=== PATIENT | female | born 1975 | race Caucasian/White ===

== ENCOUNTER 2018-10-08 03:42 | Observation (INO) | payer OTHER, MEDICAID, SELFPAY ==
[2018-10-08] VITALS (37 sets, daily range): BP systolic 81–118; BP diastolic 42–77; PULSE 88–122; RESP 13–25; TEMP 36.5–37.4; O2SAT 96–100; BMI 29.2
[2018-10-08] MEDS: ONDANSETRON 4 MG/2 ML INJ IV ×2 (03:40→06:13)
--- NOTE | 2018-10-08 03:48 | DI.US.S_ITS ---
PROCEDURE: US PELVIC COMPLETE INDICATIONS: EXTREME VAGINAL BLEEDING TECHNIQUE: Real-time scanning was performed of the pelvic organs, with image documentation. Additional endovaginal scanning was necessary due to incomplete visualization of the adnexal and endometrial structures by transabdominal scanning. COMPARISON: None. FINDINGS: Transabdominal scanning: Limited scanning through the kidneys shows no hydronephrosis. No pathologic free abdominal or pelvic fluid. Small amount of free fluid within physiological limits. Endovaginal scanning: Uterus: Uterus is normal in size at 5.6 x 3.8 x 3 point cm. The endometrium measures 7 mm in combined thickness. Mid posterior subserosal fibroid measuring 20 mm. Right mid posterior subserosal fibroid measuring 17 mm. Ovaries: Partially collapsed right ovarian cyst measuring 25 mm. Subcentimeter cystic structures within the left ovary. IMPRESSION: 1. Uterine fibroids. Patient may be a candidate for uterine fibroid embolization. Interventional radiology consultation recommended. 2. Small amount of physiologic free fluid within the pelvis. Dictated by: Alexandria Barbosa M.D. on 10/08/2018 at 7:39 Approved by: Alexandria Barbosa M.D. on 10/08/2018 at 7:41
[2018-10-08] MEDS: SODIUM CHLORIDE 0.9% 1,000 ML 1000 ML IV ×2 (03:53→04:53)
[2018-10-08 03:58] LABS: INR 1.1 (0.9-1.3); Prothrombin Time 12.5 SECONDS (10.1-12.7)
[2018-10-08 04:00] LABS: PTT Partial Thromboplastin Tim 28 SECONDS (26.4-36.2)
[2018-10-08 04:02] LABS: BUN Creatinine Ratio 12.2 (6-22); Blood Urea Nitrogen 11 mg/dL (7-17); Calcium 9.2 mg/dL (8.4-10.2); Carbon Dioxide 19 mmol/L (22-32); Chloride 96 mmol/L (98-107); Estimated Glomerular Filt Rate > 60.0 mL/min (>60); Glucose 437 mg/dL (70-100); HEMOLYSIS < 15 (0-50); Potassium 3.7 mmol/L (3.4-5.1); Sodium 131 mmol/L (137-145)
--- NOTE | 2018-10-08 04:04 | ED.FEMALEGU ---
HPI - Female Genitourinary General Chief complaint: Urogenital-Female Stated complaint: Vaginal Bleed Time Seen by Provider: 10/08/18 03:48 Source: patient and EMS Mode of arrival: EMS Limitations: no limitations History of Present Illness HPI Narrative: Patient is a 43-year-old female who presents with significant vaginal bleeding. She has a history of Lyme disease she had intercourse she says 1st times evening. Almost immediately after she started having lots of vaginal bleeding and clots. She states that no objects were used during intercourse honor intercourse was consensual. She states that she has always had heavy menstrual cycles. She did just finish. She says that she went through and pads in 1 hour there are lots of blood clots. EMS arrived she actually was quite hypotensive with a systolic in the 60s. It only slowly increased to the 80s. She is awake alert and pale. She says this has never happened to her before. She has no pelvic pain. Some mild abdominal lower discomfort. MD Complaint: vaginal bleeding Related Data Home Medications Medication Instructions Recorded Confirmed Hydroxychloroquine Sulfate 200 mg PO BID #0 07/09/10 (Plaquenil) LEVOTHYROXINE SODIUM (Synthroid) 75 mcg PO QDAY #0 07/09/10 Allergies Allergy/AdvReac Type Severity Reaction Status Date / Time cefaclor Allergy Unknown Verified 10/08/18 07:21 ibuprofen Allergy Unknown Verified 10/08/18 07:21 metoclopramide Allergy Unknown Verified 10/08/18 07:21 sumatriptan Allergy Unknown Verified 10/08/18 07:21 Review of Systems Review of Systems ROS Unobtainable: All systems reviewed & are unremarkable except as noted in HPI and below Constitutional Denies chills, Denies fever(s), Denies lethargy and Denies weakness Eyes Denies change in vision, Denies eye discharge, Denies irritation and Denies loss of vision ENT Ears, Nose, Mouth, and Throat: Denies change in voice, Denies neck pain and Denies sore throat Cardiovascular Denies chest pain, Reports lightheadedness, Denies dyspnea and Denies dyspnea on exertion Respiratory Denies cough, Denies dyspnea, Denies dyspnea on exertion and Denies wheezing Gastrointestinal Gastrointestinal: Reports abdominal pain, Reports nausea and Reports vomiting (Actively vomiting) Genitourinary Reports as per HPI and Reports abnormal vaginal bleeding Musculoskeletal Denies neck pain Integumentary/Breasts Denies pruritus, Denies erythema, Denies rash and Denies wounds Neurologic Denies loss of vision and Denies weakness Allergic/Immunologic Denies wheezing [facility] Medical History Lyme disease (Acute) Social History Smoking Status: Never smoker Social History Smoking Status: Never smoker Exam Initial Vital Signs Initial Vital Signs: Vital Signs Pulse Rate 120 H 10/08/18 03:45 Respiratory Rate 20 10/08/18 03:45 Blood Pressure 85/57 L 10/08/18 03:45 Pulse Oximetry 100 10/08/18 03:45 GENERAL: Pale alert female [id number] distress actively vomiting HEENT: Head atraumatic,EOMI, pupils reactive, face symmetric, [moist] mucous membranes CARDIOVASCULAR: Regular rate and rhythm without murmurs, rubs or gallops. RESPIRATORY: Breath sounds equal bilaterally, no wheezes rales or rhonchi. ABDOMEN: Soft, nontender. Normoactive bowel sounds all 4 quadrants. No guarding or rebound. PELVIC: External genitalia is normal, no lacerations no sign of trauma blood clots noted some mild vaginal bleeding., no vaginal discharge, no odor, cervical os is open, no adnexal tenderness : No CVA tenderness EXTREMITIES: Normal range of motion, no clubbing or edema. Neurovascularly intact NEUROLOGICAL: Alert and oriented x4.Normal gait and speech. Cranial nerves II through XII grossly intact. SKIN: Warm, dry, no laceration, no petechiae, no rashes or lesions. Course Orders Ordered: ED Orders 10/08/18 03:40 Basic Metabolic Panel Stat Complete Blood Count AUTO DIFF Stat Partial Thromboplastin Time Stat Test Serum,Qual Stat Prothrombin Time INR Stat 10/08/18 03:48 US pelvic complete Stat 10/08/18 04:11 Packed Cells Stat Type and Screen Stat 10/08/18 06:06 CT abdomen pelvis w con Stat 10/08/18 06:45 Hemoglobin and Hematocrit Stat Discontinued Medications Sodium Chloride (Normal Saline 0.9%) 1,000 mls @ 1,000 mls/hr IV BOLUS ONE Stop: 10/08/18 04:47 Last Infusion: 10/08/18 04:53 Dose: 0 mls/hr Admin: 10/08/18 03:53 Dose: 1,000 mls/hr Sodium Chloride (Normal Saline 0.9%) 1,000 mls @ 1,000 mls/hr IV BOLUS ONE Stop: 10/08/18 05:03 Last Infusion: 10/08/18 06:30 Dose: 0 mls/hr Admin: 10/08/18 04:53 Dose: 1,000 mls/hr Medroxyprogesterone Acetate (Medroxyprogesterone) 20 mg PO NOW ONE Stop: 10/08/18 04:47 Last Admin: 10/08/18 05:12 Dose: 20 mg Ondansetron HCl (Zofran) 4 mg IV NOW ONE Stop: 10/08/18 06:05 Last Admin: 10/08/18 06:13 Dose: 4 mg Ondansetron HCl (Zofran) 4 mg IV NOW ONE Stop: 10/08/18 03:41 Last Admin: 10/08/18 03:40 Dose: 4 mg Pantoprazole Sodium (Protonix) 40 mg IV NOW ONE Stop: 10/08/18 06:08 Last Admin: 10/08/18 06:15 Dose: 40 mg Vital Signs - 8 hr 10/08/18 03:45 10/08/18 03:48 10/08/18 03:50 Pulse Rate 120 H 116 H 105 H Respiratory Rate 20 18 20 Blood Pressure 90/58 L Blood Pressure [Left Arm] 85/57 L 83/60 L Pulse Oximetry 100 99 100 10/08/18 03:55 10/08/18 04:10 10/08/18 04:15 Pulse Rate 100 H 95 H 95 H Respiratory Rate 19 17 21 Blood Pressure Blood Pressure [Left Arm] 97/66 92/43 L 99/54 L Pulse Oximetry 100 100 100 10/08/18 04:31 Pulse Rate 104 H Respiratory Rate 16 Blood Pressure Blood Pressure [Left Arm] 81/52 L Pulse Oximetry 100 MDM - Female Genitourinary Lab Data Attestation: I reviewed the patient's lab results. Result diagrams: 10/08/18 06:45 10/08/18 03:40 Lab Results 10/08/18 10/08/18 10/08/18 Range/Units 03:40 03:40 03:40 WBC 26.4 H (4.5-11.0) X10^3/uL RBC 3.58 L (4.0-5.2) X10^6/uL Hgb 10.1 L (12.0-16.0) g/dL Hct 30.9 L (36-46) % MCV 86.3 (80-100) fL MCH 28.2 (26-34) PG MCHC 32.6 (30-36) % RDW 13.9 (11.6-14.8) % Plt Count 463 H (150-400) X10^3/uL Neut % (Auto) Not Reportable Lymph % (Auto) Not Reportable [place] % (Auto) Not Reportable Eos % (Auto) Not Reportable Baso % (Auto) Not Reportable Lymph # (Auto) Not Reportable [place] # (Auto) Not Reportable Baso # (Auto) Not Reportable Total Counted 100 Seg Neutrophils % 90.0 H (38-70) % Lymphocytes % (Manual) 5.0 L (25-45) % Monocytes % (Manual) 5.0 (2-11) % Neutrophils # (Manual) 51572 H (7602-9714) /uL RBC Morphology Normal morphology PT 12.5 (10.1-12.7) SECONDS INR 1.1 (0.9-1.3) APTT 28 (26.4-36.2) SECONDS Sodium 131 L (137-145) mmol/L Potassium 3.7 (3.4-5.1) mmol/L Chloride 96 L (98-107) mmol/L Carbon Dioxide 19 L (22-32) mmol/L BUN 11 (7-17) mg/dL Creatinine 0.90 (0.52-1.04) mg/dL Estimated GFR > 60.0 (>60) mL/min BUN/Creatinine Ratio 12.2 (6-22) Glucose 437 H (70-100) mg/dL Calcium 9.2 (8.4-10.2) mg/dL Serum , Qual (Negative) Blood Type Antibody Screen Crossmatch 10/08/18 10/08/18 10/08/18 Range/Units 03:40 04:11 06:45 WBC (4.5-11.0) X10^3/uL RBC (4.0-5.2) X10^6/uL Hgb 6.7 L* (12.0-16.0) g/dL Hct 19.9 L* (36-46) % MCV (80-100) fL MCH (26-34) PG MCHC (30-36) % RDW (11.6-14.8) % Plt Count (150-400) X10^3/uL Neut % (Auto) Lymph % (Auto) [place] % (Auto) Eos % (Auto) Baso % (Auto) Lymph # (Auto) [place] # (Auto) Baso # (Auto) Total Counted Seg Neutrophils % (38-70) % Lymphocytes % (Manual) (25-45) % Monocytes % (Manual) (2-11) % Neutrophils # (Manual) (2402-4347) /uL RBC Morphology PT (10.1-12.7) SECONDS INR (0.9-1.3) APTT (26.4-36.2) SECONDS Sodium (137-145) mmol/L Potassium (3.4-5.1) mmol/L Chloride (98-107) mmol/L Carbon Dioxide (22-32) mmol/L BUN (7-17) mg/dL Creatinine (0.52-1.04) mg/dL Estimated GFR (>60) mL/min BUN/Creatinine Ratio (6-22) Glucose (70-100) mg/dL Calcium (8.4-10.2) mg/dL Serum , Qual Negative (Negative) Blood Type O Positive Antibody Screen Negative Crossmatch See Detail Point of Care Testing Glucose POC 277 Imaging Data Pelvic ultrasound: 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 2.5 x 1.2 x 1.3 mild complex right ovarian cyst. Blood flow evident in bilateral ovaries. No adnexal masses. Trace free fluid. Uterus 5.6 cm. [facility] Narrative Medical decision making narrative: Patient initially quite hypotensive and tachycardic. She is fluid responsive. Cp 2 L of IV fluid blood pressure remains low but she is awake alert oriented heart rate is under 100. She consistently has some nausea and vomiting episodes despite anti nausea medication. She is noted to have quite significant leukocytosis and elevated glucose. Possibly due to stress reaction. Hemoglobin hematocrit are slightly low at 10.1 and 30.9%. Will be repeating H&H Due to persistent vomiting and significantly elevated leukocytosis will get abdominal CT. I have Repeat H&H significantly lower hemoglobin 6.7 hematocrit 19.9. 2 units of blood ordered. Patient remains slightly tachycardic 100-110 blood pressure remains in the 90s. Decision for CT. Dr. Drew-called and updated on patient's symptoms and test results. Agrees with admission. CT still pending. Patient signed out to Dr. Almendarez will check on CT. Critical Care Time Critical Care Time: Yes Total Critical Care Time: 45 Attestation: The high probability of a clinically significant, sudden or life threatening deterioration of the cardiovascular system(s) required my full and direct attention, intervention and personal management. The aggregate critical care time was 45 minutes. This time is in addition to time spent performing reported procedures but includes the following: x Data Review and interpretation x Patient assessment and monitoring of vital signs x Documentation x Medication orders and management Discharge Plan Departure Patient Disposition: Admitted As Inpatient Clinical Impression: Hemorrhagic shock, Vaginal bleeding
[2018-10-08 04:08] LABS: Hematocrit 30.9 % (36-46); Hemoglobin 10.1 g/dL (12.0-16.0); Mean Corpuscular HGB Conc 32.6 % (30-36); Mean Corpuscular Hemoglobin 28.2 PG (26-34); Mean Corpuscular Volume 86.3 fL (80-100); Platelet Count 463 X10^3/uL (150-400); Red Blood Cell Count 3.58 X10^6/uL (4.0-5.2); Red Cell Distribution Width 13.9 % (11.6-14.8); White Blood Cell Count 26.4 X10^3/uL (4.5-11.0)
[2018-10-08 04:10] LABS: Add Manual Diff / Slide Review YES
[2018-10-08 04:23] LABS: Neutrophils Absolute Manual 23760 /uL (3000-5900); RBC Morphology Normal Morphology; Total Cells Counted 100
[2018-10-08] MEDS: MEDROXYPROGESTERONE ACETATE 10 MG TABLET 20 MG PO ×2 (05:12→07:53)
--- NOTE | 2018-10-08 06:06 | DI.CT.S_ITS ---
PROCEDURE: CT ABDOMEN PELVIS W CON INDICATIONS: vaginal bleeding, hypotenstion, lower abdominal pain TECHNIQUE: After the administration of intravenous contrast, 5 mm thick sections acquired from the diaphragm to the symphysis. 5 mm coronal and sagittal reformats were acquired. For radiation dose reduction, the following was used: automated exposure control, adjustment of mA and/or kV according to patient size. COMPARISON: [facility], CT, ABDOMEN/PELVIS WITH CONTRAST, 11/23/2007, 10:50. FINDINGS: Image quality: Excellent. ABDOMEN: Lung bases: Lung bases are clear. Heart size is normal. Solid organs: Liver is normal in size and enhancement. Gallbladder is within normal limits. Biliary system is non dilated. Pancreas enhances normally. Spleen is normal in size and enhancement. No adrenal nodules. Kidneys demonstrate normal size and enhancement, without hydronephrosis. Peritoneum and bowel: Bowel loops demonstrate normal wall thickness and caliber. No free air. Small amount of physiologic free fluid within the pelvis. Normal appendix. Nodes and vessels: No retroperitoneal or mesenteric adenopathy by size criteria. Aorta and inferior vena cava are normal in size. Miscellaneous: A 26 mm diameter fat containing umbilical hernia is present, which has increased in size. PELVIS: Genitourinary: Bladder wall thickness is normal. A 19 mm exophytic enhancing focus protruding superiorly from the posterior superior uterus. A 22 mm diameter exophytic enhancing focus protrudes posteriorly from the left posterior uterus. Miscellaneous: No inguinal hernias or adenopathy. Bones: No suspicious bony lesions. No vertebral body compression fractures. IMPRESSION: 1. Uterine fibroids. Given the patient's vaginal bleeding, patient may be a candidate for uterine fibroid embolization. Interventional radiology consultation with Dr. Barbosa could be performed, if clinically indicated. 2. Normal appendix. 3. Small amount of physiologic free fluid within the pelvis. 4. Increased fat-containing umbilical hernia. 5. Concordant with preliminary interpretation. Dictated by: Alexandria Barbosa M.D. on 10/08/2018 at 7:34 Approved by: Alexandria Barbosa M.D. on 10/08/2018 at 7:38
[2018-10-08] MEDS: PANTOPRAZOLE 40 MG VIAL IV (06:15)
[2018-10-08 06:18] LABS: Pregnancy Test Serum,Qual Negative (Negative)
[2018-10-08 07:00] LABS: Hemoglobin 6.7 g/dL (12.0-16.0)
[2018-10-08 07:01] LABS: Hematocrit 19.9 % (36-46)
--- NOTE | 2018-10-08 09:00 | PM.GYNHP.1 ---
History of Present Illness Reason for admission: vaginal bleeding Narrative: Nupur Coon is a 43 year old female admitted for blood transfusion after her significant vaginal bleeding after her 1st encounter of intercourse [facility] Medical History (Updated 10/08/18 @ 11:51 by Sandy Drew MD) Asthma (Chronic) Hypothyroid (Chronic) Lyme disease (Chronic) Musculoskeletal pain (Chronic) Vision loss of left eye (Chronic) Migraine (Inactive) Surgical History (Updated 10/08/18 @ 09:26 by Sandy Drew MD) History of laparoscopy (Inactive) Social History household members: family Smoking Status: Never smoker Social History household members: family Smoking Status: Never smoker Meds Home Medications Medication Instructions Recorded Confirmed Type Hydroxychloroquine Sulfate 200 mg PO BID #0 07/09/10 10/08/18 History (Plaquenil) LEVOTHYROXINE SODIUM (Synthroid) 75 mcg PO QDAY #0 07/09/10 10/08/18 History albuterol sulfate INHALATION PRN PRN 10/08/18 History Allergies Allergy/AdvReac Type Severity Reaction Status Date / Time cefaclor Allergy Unknown Verified 10/08/18 07:21 ibuprofen Allergy Unknown Verified 10/08/18 07:21 metoclopramide Allergy Unknown Verified 10/08/18 07:21 sumatriptan Allergy Unknown Verified 10/08/18 07:21 Review of Systems Review of Systems Patient has occasional headaches she thinks are from either her Lyme disease which she contracted in 2000 or from head injury she received as a child after which she had left-sided vision loss. Patient was otherwise healthy until she attempted to have intercourse for the 1st time and had significant bleeding afterwards. Patient states she soaks 7 pads in an hour and a half. She became lightheaded and dizzy. She was brought to the hospital by ambulance. Patient denies any depression or anxiety. She denies any chest pains or shortness of breath currently but does have a history of asthma for which she uses an albuterol nebulizer. She denies any breast changes. She is having some mild abdominal pain. She has a history of intermittent constipation. Her periods are mostly regular sometimes lasting 4-5 days sometimes 7 days but she only changes her pad 4-5 times per day. Patient does have a history of hypothyroidism but has not taking her medication for several months. She also has a history of Lyme disease which she was on Plaquenil but has not taken for several months. She says she takes Neurontin but also is almost out of the medication. She takes Benadryl for skin itching she believes are from her Lyme disease. All systems reviewed & are unremarkable except as noted in HPI and below Exam Vital Signs (past 8 hours): - 10/08/18 03:45 10/08/18 03:48 10/08/18 03:50 Temperature Pulse Rate 120 H 116 H 105 H Respiratory Rate 20 18 20 Blood Pressure 90/58 L Blood Pressure [Left Arm] 85/57 L 83/60 L Pulse Oximetry 100 99 100 10/08/18 03:55 10/08/18 04:00 10/08/18 04:10 Temperature Pulse Rate 100 H 101 H 95 H Respiratory Rate 19 22 17 Blood Pressure Blood Pressure [Left Arm] 97/66 97/66 92/43 L Pulse Oximetry 100 100 100 10/08/18 04:15 10/08/18 04:31 10/08/18 04:35 Temperature Pulse Rate 95 H 104 H 101 H Respiratory Rate 21 16 17 Blood Pressure Blood Pressure [Left Arm] 99/54 L 81/52 L 102/64 Pulse Oximetry 100 100 100 10/08/18 04:45 10/08/18 04:55 10/08/18 05:05 Temperature Pulse Rate 109 H 95 H 90 Respiratory Rate 18 20 22 Blood Pressure Blood Pressure [Left Arm] 85/42 L 92/54 L 97/55 L Pulse Oximetry 100 100 100 10/08/18 05:15 10/08/18 05:25 10/08/18 05:35 Temperature Pulse Rate 95 H 97 H 88 Respiratory Rate 20 20 21 Blood Pressure Blood Pressure [Left Arm] 93/59 L 94/61 96/59 L Pulse Oximetry 100 97 98 10/08/18 05:45 10/08/18 05:55 10/08/18 06:05 Temperature Pulse Rate 90 105 H 99 H Respiratory Rate 21 15 18 Blood Pressure Blood Pressure [Left Arm] 98/67 87/58 L 90/61 Pulse Oximetry 100 100 100 10/08/18 06:15 10/08/18 06:25 10/08/18 07:00 Temperature Pulse Rate 101 H 92 H 100 H Respiratory Rate 19 23 23 Blood Pressure Blood Pressure [Left Arm] 105/61 103/54 L 106/58 L Pulse Oximetry 99 100 100 10/08/18 07:05 10/08/18 07:30 10/08/18 07:40 Temperature 99.4 F Pulse Rate 96 H 103 H 102 H Respiratory Rate 21 24 19 Blood Pressure Blood Pressure [Left Arm] 99/75 108/77 Pulse Oximetry 100 100 100 10/08/18 07:44 10/08/18 07:57 10/08/18 08:59 Temperature 99.4 F 97.7 F 98.5 F Pulse Rate 102 H 110 H 102 H Respiratory Rate 19 18 16 Blood Pressure 118/46 L 112/44 L 101/73 Blood Pressure [Left Arm] Pulse Oximetry Oxygen Delivery Method Room Air Narrative Exam Narrative: HEENT exam poor dentition. Lungs are clear to auscultation and percussion. Abdomen is soft, with minimal tenderness. She has minimal vaginal bleeding currently. Extremities without edema nontender. Objective Imaging CT scan - pelvis: Radiologist's impression: Two small subserosal fibroids no other abnormalities US - abdomen: Radiologist's impression: Two small subserosal fibroids within endometrium otherwise normal Labs Result Diagrams: 10/08/18 06:45 10/08/18 03:40 Labs: Laboratory Results - last 24 hr 10/08/18 10/08/18 10/08/18 03:40 03:40 03:40 WBC 26.4 H RBC 3.58 L Hgb 10.1 L Hct 30.9 L MCV 86.3 MCH 28.2 MCHC 32.6 RDW 13.9 Plt Count 463 H Neut % (Auto) Not Reportable Lymph % (Auto) Not Reportable [place] % (Auto) Not Reportable Eos % (Auto) Not Reportable Baso % (Auto) Not Reportable Lymph # (Auto) Not Reportable [place] # (Auto) Not Reportable Baso # (Auto) Not Reportable Total Counted 100 Seg Neutrophils % 90.0 H Lymphocytes % (Manual) 5.0 L Monocytes % (Manual) 5.0 Neutrophils # (Manual) 62634 H RBC Morphology Normal morphology PT 12.5 INR 1.1 APTT 28 Sodium 131 L Potassium 3.7 Chloride 96 L Carbon Dioxide 19 L BUN 11 Creatinine 0.90 Estimated GFR > 60.0 BUN/Creatinine Ratio 12.2 Glucose 437 H Calcium 9.2 Serum , Qual Blood Type Antibody Screen Crossmatch 10/08/18 10/08/18 10/08/18 03:40 04:11 06:45 WBC RBC Hgb 6.7 L* Hct 19.9 L* MCV MCH MCHC RDW Plt Count Neut % (Auto) Lymph % (Auto) [place] % (Auto) Eos % (Auto) Baso % (Auto) Lymph # (Auto) [place] # (Auto) Baso # (Auto) Total Counted Seg Neutrophils % Lymphocytes % (Manual) Monocytes % (Manual) Neutrophils # (Manual) RBC Morphology PT INR APTT Sodium Potassium Chloride Carbon Dioxide BUN Creatinine Estimated GFR BUN/Creatinine Ratio Glucose Calcium Serum , Qual Negative Blood Type O Positive Antibody Screen Negative Crossmatch See Detail Assessment & Plan (1) Vaginal bleeding: Current visit: Yes Status: Acute (2) Hemorrhagic shock: Current visit: Yes Status: Acute Assessment & Plan narrative: Patient with significant bleeding after 1st attempt at intercourse. She currently has minimal bleeding. She had a significant drop in her hematocrit during her emergency room evaluation and was admitted for blood transfusion. Although there are fibroids seen on ultrasound they are subserosal so unlikely to be the cause of her bleeding. Her endometrial lining is thin. The patient likely has chronic anemia that was exacerbated by the blood loss from her initial intercourse. Patient has received 2 units of packed red blood cells. If she remains stable she will be discharged home. Time Spent With Patient Time with patient: 15-24 minutes
--- NOTE | 2018-10-08 10:38 | PC.NURSE ---
Addendum entered by Debbie Santiago R.N. 10/08/18 13:02: pt ambulated in ICU halls. HH results back and Dr. Drew has seen results. pt without dizziness. BP stable. tachycardia HR 100-130's; Dr. Drew aware and pt states this is her normal since lyme disease diagnosis. Original Note: admission done. pt alert and oriented. pleasant. pt states h/o tachycardia, generalized discomfort due to lyme disease. most of pt's teeth worn 1/[address] way. pt denies teeth pain.
[2018-10-08 12:28] LABS: Add Manual Diff / Slide Review NO; Basophils Absolute Auto 0 /uL (0-100); Basophils Percent Auto 0.1 % (0-2); Eosinophils Absolute Auto 0 /uL (0-450); Eosinophils Percent Auto 0.1 % (2-4); Hemoglobin 11.9 g/dL (12.0-16.0); Lymphocytes Absolute Auto 2800 /uL (1100-4500); Lymphocytes Percent Auto 13.7 % (25-40); Mean Corpuscular Hemoglobin 28.4 PG (26-34); Mean Corpuscular Volume 83.7 fL (80-100); Monocytes Absolute Auto 1000 /uL (0-900); Neutrophils Absolute Auto 16700 /uL (1500-7000); Neutrophils Percent Auto 81.1 % (50-75); Platelet Count 292 X10^3/uL (150-400); Red Blood Cell Count 4.18 X10^6/uL (4.0-5.2); Red Cell Distribution Width 13.9 % (11.6-14.8); White Blood Cell Count 20.6 X10^3/uL (4.5-11.0)
--- NOTE | 2018-10-08 13:18 | PM.DS.1 ---
History of Present Illness Date Patient Seen: 10/08/18 Time Patient Seen: 13:18 Chief complaint: Vaginal Bleed Narrative: Patient had excessive bleeding after intercourse and was admitted for blood transfusion for hypotension and anemia Discharge Providers Date of admission: 10/08/18 07:40 Discharge Date: 10/08/18 Discharge provider: Sandy Drew MD Summary Discharge Diagnosis: Menorrhagia from vaginal laceration likely chronic anemia Hospital Course: Patient will arrived at the hospital emergency room from emergency transport due to significant vaginal bleeding after intercourse. Patient received 2 units of packed red blood cells and her post transfusion hematocrit had increased to 35. Patient was able to ambulate without difficulty. She was urinating without difficulty. She had a bowel movement in the hospital. She had minimal vaginal bleeding. Status at Discharge Cognitive/behavioral status at discharge: oriented Functional status at discharge: independent ambulation Overall status at discharge: patient is progressing back to baseline Time Spent with Patient Less than 30 minutes Exam Vital Signs (past 8 hours): - 10/08/18 05:25 10/08/18 05:35 10/08/18 05:45 Temperature Pulse Rate 97 H 88 90 Respiratory Rate 20 21 21 Blood Pressure Blood Pressure [Left Arm] 94/61 96/59 L 98/67 Pulse Oximetry 97 98 100 10/08/18 05:55 10/08/18 06:05 10/08/18 06:15 Temperature Pulse Rate 105 H 99 H 101 H Respiratory Rate 15 18 19 Blood Pressure Blood Pressure [Left Arm] 87/58 L 90/61 105/61 Pulse Oximetry 100 100 99 10/08/18 06:25 10/08/18 07:00 10/08/18 07:05 Temperature Pulse Rate 92 H 100 H 96 H Respiratory Rate 23 23 21 Blood Pressure Blood Pressure [Left Arm] 103/54 L 106/58 L 99/75 Pulse Oximetry 100 100 100 10/08/18 07:30 10/08/18 07:40 10/08/18 07:44 Temperature 99.4 F 99.4 F Pulse Rate 103 H 102 H 102 H Respiratory Rate 24 19 19 Blood Pressure 118/46 L Blood Pressure [Left Arm] 108/77 Pulse Oximetry 100 100 10/08/18 07:57 10/08/18 08:03 10/08/18 08:30 Temperature 97.7 F 98.5 F 98.6 F Pulse Rate 110 H 102 H 112 H Respiratory Rate 18 16 19 Blood Pressure 112/44 L 101/73 108/43 L Blood Pressure [Left Arm] Pulse Oximetry 100 10/08/18 08:59 10/08/18 09:10 10/08/18 09:15 Temperature 98.5 F 99.1 F Pulse Rate 102 H 100 H 105 H Respiratory Rate 16 19 16 Blood Pressure 101/73 101/73 108/57 L Blood Pressure [Left Arm] Pulse Oximetry 100 10/08/18 10:00 10/08/18 10:09 10/08/18 11:00 Temperature 99.1 F Pulse Rate 101 H 100 H Respiratory Rate 18 16 17 Blood Pressure 88/64 L 111/64 94/50 L Blood Pressure [Left Arm] Pulse Oximetry 99 100 100 10/08/18 12:00 10/08/18 13:00 Temperature Pulse Rate 111 H 122 H Respiratory Rate 20 Blood Pressure 103/57 L Blood Pressure [Left Arm] Pulse Oximetry 100 Oxygen Delivery Method Room Air Oxygen Flow Rate 0 Narrative Exam Narrative: Abdomen is soft nontender. Extremities without edema and nontender. Minimal vaginal bleeding. Objective Labs Result Diagrams: 10/08/18 12:13 10/08/18 03:40 Labs: Laboratory Results - last 24 hr 10/08/18 10/08/18 10/08/18 03:40 03:40 03:40 WBC 26.4 H RBC 3.58 L Hgb 10.1 L Hct 30.9 L MCV 86.3 MCH 28.2 MCHC 32.6 RDW 13.9 Plt Count 463 H Neut % (Auto) Not Reportable Lymph % (Auto) Not Reportable Canadian % (Auto) Not Reportable Eos % (Auto) Not Reportable Baso % (Auto) Not Reportable Neut # (Auto) Lymph # (Auto) Not Reportable Canadian # (Auto) Not Reportable Eos # (Auto) Baso # (Auto) Not Reportable Total Counted 100 Seg Neutrophils % 90.0 H Lymphocytes % (Manual) 5.0 L Monocytes % (Manual) 5.0 Neutrophils # (Manual) 24131 H RBC Morphology Normal morphology PT 12.5 INR 1.1 APTT 28 Sodium 131 L Potassium 3.7 Chloride 96 L Carbon Dioxide 19 L BUN 11 Creatinine 0.90 Estimated GFR > 60.0 BUN/Creatinine Ratio 12.2 Glucose 437 H Calcium 9.2 Serum , Qual Blood Type Antibody Screen Crossmatch 10/08/18 10/08/18 10/08/18 03:40 04:11 06:45 WBC RBC Hgb 6.7 L* Hct 19.9 L* MCV MCH MCHC RDW Plt Count Neut % (Auto) Lymph % (Auto) Canadian % (Auto) Eos % (Auto) Baso % (Auto) Neut # (Auto) Lymph # (Auto) Canadian # (Auto) Eos # (Auto) Baso # (Auto) Total Counted Seg Neutrophils % Lymphocytes % (Manual) Monocytes % (Manual) Neutrophils # (Manual) RBC Morphology PT INR APTT Sodium Potassium Chloride Carbon Dioxide BUN Creatinine Estimated GFR BUN/Creatinine Ratio Glucose Calcium Serum , Qual Negative Blood Type O Positive Antibody Screen Negative Crossmatch See Detail 10/08/18 12:13 WBC 20.6 H RBC 4.18 Hgb 11.9 L Hct 35.0 L MCV 83.7 MCH 28.4 MCHC 34.0 RDW 13.9 Plt Count 292 Neut % (Auto) 81.1 H Lymph % (Auto) 13.7 L Canadian % (Auto) 5.0 Eos % (Auto) 0.1 L Baso % (Auto) 0.1 Neut # (Auto) 58293 H Lymph # (Auto) 2800 Canadian # (Auto) 1000 H Eos # (Auto) 0 Baso # (Auto) 0 Total Counted Seg Neutrophils % Lymphocytes % (Manual) Monocytes % (Manual) Neutrophils # (Manual) RBC Morphology PT INR APTT Sodium Potassium Chloride Carbon Dioxide BUN Creatinine Estimated GFR BUN/Creatinine Ratio Glucose Calcium Serum , Qual Blood Type Antibody Screen Crossmatch Discharge Plan Discharge Plan Patient Disposition: Home Discharge Med Rec/Prescriptions Prescriptions: Continued albuterol sulfate aerosol inhalation PRN PRN (Reason: Shortness Of Breath Or Wheezing) RF: 0 LEVOTHYROXINE SODIUM (Synthroid) 75 mcg 75 mcg PO QDAY Qty: 30 RF: 2 Discontinued Hydroxychloroquine Sulfate (Plaquenil) 200 mg PO BID Qty: 0 RF: 0 Follow up/Referrals: Sandy Drew MD [Physician] - 1 Week (follow up vaginal bleeding) Provider Discharge Instructions Diet: Regular Skin/Wound/Dressing Care Report to your healthcare provider any signs of infection, such as:: chills, fever and increased pain Discharge Data Attending Provider: Sandy Drew Admit Date/Time: 10/08/18 07:40 Quality VTE Deep Vein Thrombosis/Pulmonary Embolism Present on Admission: No
--- NOTE | 2018-10-08 15:11 | PC.NURSE ---
discharge instructions reviewed with pt. cole hussein dc'ana
== END 2018-10-08 15:16 | disposition home or self-care (01) ==
LOC: ED 07:35 → ICU 08:47 → AC 10-10 08:13
PROVIDERS: Emergency Medicine; Admitting Provider Specialist; Emergency Provider Emergency Medicine; Visit Provider Specialist
DX: N93.0 Postcoital and contact bleeding (principal); N93.9 Abnormal uterine and vaginal bleeding, unspecified; D62 Acute posthemorrhagic anemia; I95.9 Hypotension, unspecified; J45.909 Unspecified asthma, uncomplicated; A69.20 Lyme disease, unspecified
CPT/HCPCS: 36415; 36430; 74177; 76830; 76856; 80048; 82962; 84703; 85014; 85018; 85025; 85610; 85730; 86850; 86900; 86901; 96361; 96374; 96375; 96376; 99220; 99284; 99285; G0378; P9016; C9113; J2405; Q9967

== ENCOUNTER 2019-02-09 14:15 | Emergency (ER) | payer OTHER, MEDICAID, SELFPAY ==
[2018-10-08 10:09] VITALS: BMI 29.2
[2019-02-09 14:20] VITALS: BP 137/92; PULSE 110; RESP 15; TEMP 37.8; O2SAT 97; BMI 29.2
--- NOTE | 2019-02-09 14:30 | ED.URI ---
HPI - URI/Sore Throat <Keisha Salazar PA-C - Last Filed: 02/09/19 15:31> General Chief Complaint: Upper Respiratory Symptoms Stated Complaint: sore throat pain/fever x4 days Time Seen by Provider: 02/09/19 14:30 Source: patient Mode of arrival: Ambulatory Limitations: no limitations History of Present Illness HPI Narrative: This 43-year-old female comes to ED secondary to sore throat and fever, does not have a local PCP. She states that 6 days ago, she had laryngitis, thought it was just from yelling as she did feel better the next day. She states that for the last 3 days, she has had severe sore throat, painful to swallow but able. She has also had fever, with temperature up to 103 at home, has been taking acetaminophen as needed. She states she has also did but sinus pressure and drainage, feels a lot of phlegm draining and now has some mild cough as well. She has a history of asthma, denies chest pain or dyspnea. She denies any pain or swelling in her extremities. She states that she did take 1 dose of Bactrim yesterday because she thought her Lyme disease might be flaring up a bit. She states that she does get fevers 1 that flares up, as high as 104. She is sexually active and states she did have oral sex a day or 2 prior to the sore throat, however she has not had any urinary symptoms, vaginal discharge or other new problems. She does not have STD concerns, 1 monogamous partner. She states that her boyfriend is sick with similar symptoms except he has more cough than she does. She states that her sore throat started to feel little bit better but she got a fever again today so came in Related Data Home Medications Medication Instructions Recorded Confirmed albuterol sulfate INHALATION PRN PRN 10/08/18 10/17/18 Previous Rx's Medication Instructions Recorded norethindrone acetate 1 mg-ethinyl 1 tab PO DAILY #21 tab 10/17/18 estradiol 20 mcg tablet levothyroxine 75 mcg tablet 75 mcg PO DAILY #30 tab 01/11/19 lidocaine HCl [Lidocaine Viscous] 10 ml PO Q3-4H PRN #150 ml 02/09/19 Allergies Allergy/AdvReac Type Severity Reaction Status Date / Time cefaclor Allergy Unknown Verified 02/09/19 14:20 ibuprofen Allergy Unknown Verified 02/09/19 14:20 metoclopramide Allergy Unknown Verified 02/09/19 14:20 sumatriptan Allergy Unknown Verified 02/09/19 14:20 aspirin Allergy Verified 02/09/19 14:20 levofloxacin [From Levaquin] Allergy Verified 02/09/19 14:20 meperidine [From Demerol] Allergy Verified 02/09/19 14:20 Review of Systems <Keisha Salazar PA-C - Last Filed: 02/09/19 15:31> Review of Systems ROS Unobtainable: All systems reviewed & are unremarkable except as noted in HPI and below Patient History <Keisha Salazar PA-C - Last Filed: 02/09/19 15:31> Medical History Anemia (Chronic ~2006) Asthma (Chronic ~1989) Bartonella infection (Inactive) Zayra Newberry infection (Inactive) Fibroids (Chronic ~2001) Fractures (Resolved ~1999) GERD (gastroesophageal reflux disease) (Chronic ~2001) Headache (Chronic ~2000) History of recurrent ear infection (Chronic ~2000) Hypothyroid (Chronic ~2002) Lyme disease (Chronic ~2000) Migraine (Inactive) Migraines (Chronic ~1989) Musculoskeletal pain (Chronic) Mycoplasma infection (Inactive) Pelvic pain (Chronic ~2006) Edmundson spotted fever (Inactive) Tachycardia (Chronic ~2001) Tinnitus (Chronic ~2000) Vision loss of left eye (Chronic) Surgical History Anesthesia (Resolved) History of laparoscopy (Resolved ~2009) [place] teeth removed (Resolved ~2001) Family History (Updated 10/26/18 @ 22:50 by Celia Brooks) Father Suicide Mother Diabetes mellitus Grandfather Mesothelioma Grandmother Cancer Social History household members: family Smoking Status: Never smoker Social History household members: family Smoking Status: Never smoker alcohol intake frequency: holidays/special occasions only Substance Use Type: does not use Exam <Keisha Salazar PA-C - Last Filed: 02/09/19 15:31> Narrative Exam Narrative: GENERAL APPEARANCE: Patient sitting comfortably, in no distress. HEAD: No sinus TTP. EYES: PERRL, EOMI. EARS: Normal auditory canals, TMS intact with normal light reflexes. ORAL CAVITY: Normal oropharynx. THROAT: Clear. NECK/THYROID: Neck supple, full range of motion, no cervical lymphadenopathy. LUNGS: Clear to auscultation bilaterally, clear to percussion, no cough on exam. HEART: RRR without murmur, nl S1, S2, no S3 or S4. Initial Vital Signs Initial Vital Signs: Vital Signs Temperature 100.1 F H 02/09/19 14:20 Pulse Rate 110 H 02/09/19 14:20 Respiratory Rate 15 02/09/19 14:20 Blood Pressure 137/92 H 02/09/19 14:20 Pulse Oximetry 97 02/09/19 14:20 <Kirsten Bateman MD - Last Filed: 02/09/19 18:59> Initial Vital Signs Initial Vital Signs: Vital Signs Temperature 100.1 F H 02/09/19 14:20 Pulse Rate 110 H 02/09/19 14:20 Respiratory Rate 15 02/09/19 14:20 Blood Pressure 137/92 H 02/09/19 14:20 Pulse Oximetry 97 02/09/19 14:20 Course <Keisha Salazar PA-C - Last Filed: 02/09/19 15:31> Orders Ordered: ED Orders 02/09/19 15:18 Throat Culture Stat Discontinued Medications Acetaminophen (Tylenol) 650 mg PO NOW ONE Stop: 02/09/19 14:49 Last Admin: 02/09/19 15:17 Dose: 650 mg Documented by: BTONER Vital Signs Vital signs: Vital Signs - 8 hr 02/09/19 14:20 02/09/19 15:30 Temperature 100.1 F H 99.5 F Pulse Rate 110 H 90 Respiratory Rate 15 Blood Pressure 137/92 H 117/71 Pulse Oximetry 97 96 <Kirsten Bateman MD - Last Filed: 02/09/19 18:59> Orders Ordered: ED Orders 02/09/19 15:18 Throat Culture Stat Discontinued Medications Acetaminophen (Tylenol) 650 mg PO NOW ONE Stop: 02/09/19 14:49 Last Admin: 02/09/19 15:17 Dose: 650 mg Documented by: BTONER Vital Signs Vital signs: Vital Signs - 8 hr 02/09/19 14:20 02/09/19 15:30 Temperature 100.1 F H 99.5 F Pulse Rate 110 H 90 Respiratory Rate 15 Blood Pressure 137/92 H 117/71 Pulse Oximetry 97 96 MDM - URI/Sore Throat <Keisha Salazar PA-C - Last Filed: 02/09/19 15:31> Lab Data Attestation: I reviewed the patient's lab results. Labs: Point of Care Testing Rapid Strep A Negative <Kirsten Bateman MD - Last Filed: 02/09/19 18:59> Lab Data Labs: Point of Care Testing Rapid Strep A Negative Discharge Plan Departure Patient Disposition: Home Clinical Impression: Pharyngitis Qualifiers: Pharyngitis/tonsillitis etiology: unspecified etiology Qualified Code(s): J02.9 - Acute pharyngitis, unspecified Discharge Date/Time: 02/09/19 15:31 Instructions: DI for Pharyngitis/Tonsillopharyngitis -- Adult Activity Restrictions/Additional Instructions: We have sent a culture of your throat to the lab as a backup test for strep as well as other organisms. Your rapid strep test here was negative, and as we talked about the most common cause of sore throat with laryngitis is viral. This is more likely since your significant other is sick with upper respiratory symptoms as well. Please continue Tylenol for your fever. You may wish to try Tylenol 8 hour or arthritis strength, which you can take every 6-8 hours for longer-acting relief. I have also prescribed some viscous lidocaine for you to use as needed for pain. You may also wish to try lozenges such as Cepacol. As we talked about, you should return if you have any acutely worsening symptoms such as difficulty breathing or inability to swallow or manage your secretions, or high fever not responding to medications. Please call the [facility] at [phone] and let them know you were seen in the emergency room and need help establishing with a local primary care provider. You should be seen if you are not feeling better from your sinus and throat symptoms in the next week. Prescriptions: New lidocaine HCl [Lidocaine Viscous] 2 % solution 10 ml PO Q3-4H PRN (Reason: ST) Qty: 150 RF: 0 No Action levothyroxine 75 mcg tablet 75 mcg PO DAILY Qty: 30 RF: 1 norethindrone ac-eth estradiol 1-20 mg-mcg tablet 1 tab PO DAILY Qty: 21 RF: 10 albuterol sulfate aerosol inhalation PRN PRN (Reason: Shortness Of Breath Or Wheezing) RF: 0
[2019-02-09] MEDS: ACETAMINOPHEN 325 MG TABLET 650 MG PO (15:17)
[2019-02-09 15:30] VITALS: BP 117/71; PULSE 90; TEMP 37.5; O2SAT 96
== END 2019-02-09 15:31 | disposition home or self-care (01) ==
PROVIDERS: Emergency Provider Internal Medicine
DX: J02.9 Acute pharyngitis, unspecified (principal)
CPT/HCPCS: 87880; 99282; 99283

== ENCOUNTER 2020-11-17 18:43 | Emergency (ER) | payer OTHER, MEDICAID, SELFPAY ==
[2018-10-08 10:09] VITALS: BMI 29.2
[2020-11-17 19:00] VITALS: BP 146/74; PULSE 95; RESP 18; TEMP 36.7; O2SAT 100; BMI 27.3
[2020-11-17 19:49] LABS: Add Manual Diff / Slide Review NO; Basophils Absolute Auto 100 /uL (0-100); Basophils Percent Auto 1.1 % (0-2); Eosinophils Absolute Auto 100 /uL (0-450); Eosinophils Percent Auto 0.9 % (2-4); Hematocrit 43.4 % (36-46); Hemoglobin 14.7 g/dL (12.0-16.0); Lymphocytes Absolute Auto 2100 /uL (1100-4500); Lymphocytes Percent Auto 22.6 % (25-40); Mean Corpuscular HGB Conc 33.8 % (30-36); Mean Corpuscular Hemoglobin 29.7 PG (26-34); Mean Corpuscular Volume 87.9 fL (80-100); Monocytes Absolute Auto 700 /uL (0-900); Monocytes Percent Auto 7.8 % (3-14); Neutrophils Absolute Auto 6300 /uL (1500-7000); Neutrophils Percent Auto 67.6 % (50-75); Platelet Count 326 X10^3/uL (150-400); Red Blood Cell Count 4.94 X10^6/uL (4.0-5.2); Red Cell Distribution Width 12.7 % (11.6-14.8); White Blood Cell Count 9.3 X10^3/uL (4.5-11.0)
[2020-11-17 19:51] LABS: Alanine Aminotransferase 24 IU/L (<35); Albumin 4.8 g/dL (3.5-5.0); Albumin Globulin Ratio 1.5 (1.0-2.8); Alkaline Phosphatase 68 U/L (38-126); Aspartate Aminotransferase 24 IU/L (14-36); BUN Creatinine Ratio 18.8 (6-22); Bilirubin Total 0.4 mg/dL (0.2-1.3); Blood Urea Nitrogen 13 mg/dL (7-17); Calcium 10.4 mg/dL (8.4-10.2); Carbon Dioxide 32 mmol/L (22-32); Chloride 102 mmol/L (98-107); Estimated Glomerular Filt Rate > 60.0 mL/min (>60); Globulin 3.3 g/dL (1.7-4.1); Glucose 116 mg/dL (70-100); HEMOLYSIS < 15 (0-50); Lipase 135 U/L (23-300); Potassium 4.6 mmol/L (3.4-5.1); Sodium 141 mmol/L (137-145); Total Protein 8.1 g/dL (6.3-8.2)
--- NOTE | 2020-11-17 20:40 | ED_ITS ---
HPI - General Adult General Chief complaint: Abdominal Pain Stated complaint: Abd Pain, Thinks Maybe Time Seen by Provider: 11/17/20 20:01 Source: patient Mode of arrival: Ambulatory Limitations: no limitations History of Present Illness HPI narrative: Patient is a 45-year-old female here for evaluation of multiple complaints. States that her asthma has been acting up recently and she is running out of albuterol for her nebulizer and needs refill of this. She also needs a refill of her albuterol inhaler. She is also here for vaginal discharge. She is concerned about a sexually transmitted disease she states her last boyfriend was a ?homeless drug user ?she is also here for abdominal discomfort. States there is a lump in the center of her abdomen. She noticed this a couple days ago. She also states she has not had a menstrual cycle in 4 months. She is concerned that she may be . She took a home test and the line was ?faint? Related Data Home Medications Medication Instructions Recorded Confirmed albuterol sulfate INHALATION PRN PRN 10/08/18 10/17/18 Previous Rx's Medication Instructions Recorded norethindrone acetate 1 mg-ethinyl 1 tab PO DAILY #21 tab 10/17/18 estradiol 20 mcg tablet levothyroxine 75 mcg tablet 75 mcg PO DAILY #30 tab 01/11/19 lidocaine HCl 2 % mucosal solution 10 ml PO Q3-4H PRN #150 ml 02/09/19 (Lidocaine Viscous) albuterol sulfate 2.5 mg INHALATION Q4-6H PRN #75 ml 11/17/20 albuterol sulfate 90 mcg/actuation 2 puff INHALATION Q4-6H PRN #8.5 g 11/17/20 aerosol inhaler Allergies Allergy/AdvReac Type Severity Reaction Status Date / Time cefaclor Allergy Unknown Verified 02/09/19 14:20 ibuprofen Allergy Unknown Verified 02/09/19 14:20 metoclopramide Allergy Unknown Verified 02/09/19 14:20 sumatriptan Allergy Unknown Verified 02/09/19 14:20 aspirin Allergy Verified 02/09/19 14:20 levofloxacin [From Levaquin] Allergy Verified 02/09/19 14:20 meperidine [From Demerol] Allergy Verified 02/09/19 14:20 Review of Systems Constitutional Constitutional: Reports system reviewed and no additional complaints, except as documented Cardiovascular Cardiovascular: Reports system reviewed and no additional complaints, except as documented Respiratory Respiratory: Reports as per HPI Gastrointestinal Gastrointestinal: Reports as per HPI Genitourinary Genitourinary: Reports as per HPI Musculoskeletal Musculoskeletal: Reports system reviewed and no additional complaints, except as documented Integumentary/Breasts Skin/Breast: Reports system reviewed and no additional complaints, except as documented Neurologic Neurologic: Reports system reviewed and no additional complaints, except as documented Hematologic/Lymphatic On Anticoagulants: No Allergic/Immunologic Allergic/Immunologic: Reports system reviewed and no additional complaints, exc ept as documented Patient History Medical History Anemia (~2006) Asthma (~1989) Bartonella infection Zayra Newberry infection Fibroids (~2001) Fractures (~1999) GERD (gastroesophageal reflux disease) (~2001) Headache (~2000) History of recurrent ear infection (~2000) Hypothyroid (~2002) Lyme disease (~2000) Migraine Migraines (~1989) Musculoskeletal pain Mycoplasma infection Pelvic pain (~2006) [place] spotted fever Tachycardia (~2001) Tinnitus (~2000) Vision loss of left eye Surgical History Anesthesia History of laparoscopy (~2009) [place] teeth removed (~2001) Family History (Updated 10/26/18 @ 22:50 by Celia Brooks) Father Suicide Mother Diabetes mellitus Grandfather Mesothelioma Grandmother Cancer Social History household members: family Smoking Status: Never smoker Smoking Status: Never smoker alcohol intake frequency: holidays/special occasions only Substance Use Type: marijuana Exam Initial Vital Signs Initial Vital Signs: Vital Signs Temperature 98.0 F 11/17/20 19:00 Pulse Rate 95 H 11/17/20 19:00 Respiratory Rate 18 11/17/20 19:00 Blood Pressure 146/74 H 11/17/20 19:00 Pulse Oximetry 100 11/17/20 19:00 Const General: cooperative HENMT Head: normal to inspection and normocephalic Eyes General: appearance normal, both eyes and all related structures Resp Effort & Inspection: normal respiratory effort Auscultation: clear to auscultation bilaterally Cardio Rate: regular rate Rhythm: regular rhythm GI Palpation: soft, No firm, hernia (Umbilical hernia), No mass and No tender Skin General: no rashes or lesions noted Neuro General: patient alert, patient awake and moves all extremities Extrem General: normal to inspection and capillary refill normal Psych Appearance: grossly normal Course Orders Ordered: ED Orders 11/17/20 19:15 Chlamydia Gonorrhea PCR -URINE Stat 11/17/20 19:30 Complete Blood Count AUTO DIFF Stat Comprehensive Metabolic Panel Stat Lipase Stat 11/17/20 20:40 CT abdomen pelvis w con Stat Vital Signs Vital signs: Vital Signs - 8 hr 11/17/20 22:48 Pulse Rate 80 Respiratory Rate 16 Blood Pressure 123/71 Pulse Oximetry 100 Medical Decision Making Lab Data Lab results reviewed: Yes I reviewed the patient's lab results. Result diagrams: 11/17/20 19:30 11/17/20 19:30 Labs: Lab Results 11/17/20 11/17/20 11/17/20 Range/Units 19:15 19:30 19:30 WBC 9.3 (4.5-11.0) X10^3/uL RBC 4.94 (4.0-5.2) X10^6/uL Hgb 14.7 (12.0-16.0) g/dL Hct 43.4 (36-46) % MCV 87.9 (80-100) fL MCH 29.7 (26-34) PG MCHC 33.8 (30-36) % RDW 12.7 (11.6-14.8) % Plt Count 326 (150-400) X10^3/uL Neut % (Auto) 67.6 (50-75) % Lymph % (Auto) 22.6 L (25-40) % [place] % (Auto) 7.8 (3-14) % Eos % (Auto) 0.9 L (2-4) % Baso % (Auto) 1.1 (0-2) % Neut # (Auto) 6300 (4019-9107) /uL Lymph # (Auto) 2100 (1235-7662) /uL [place] # (Auto) 700 (0-900) /uL Eos # (Auto) 100 (0-450) /uL Baso # (Auto) 100 (0-100) /uL Sodium 141 (137-145) mmol/L Potassium 4.6 (3.4-5.1) mmol/L Chloride 102 (98-107) mmol/L Carbon Dioxide 32 (22-32) mmol/L BUN 13 (7-17) mg/dL Creatinine 0.69 (0.52-1.04) mg/dL Estimated GFR > 60.0 (>60) mL/min BUN/Creatinine Ratio 18.8 (6-22) Glucose 116 H (70-100) mg/dL Calcium 10.4 H (8.4-10.2) mg/dL Total Bilirubin 0.4 (0.2-1.3) mg/dL AST 24 (14-36) IU/L ALT 24 (<35) IU/L Alkaline Phosphatase 68 (38-126) U/L Total Protein 8.1 (6.3-8.2) g/dL Albumin 4.8 (3.5-5.0) g/dL Globulin 3.3 (1.7-4.1) g/dL Albumin/Globulin Ratio 1.5 (1.0-2.8) Lipase 135 (23-300) U/L Ur Chlamydia DNA (PCR) Not detected N gonorrhoeae DNA (PCR) Not detected Point of Care Testing Test Results Negative Urine Dip Bedside Urine Glucose Negative Bedside Urine Bilirubin - Negative Bedside Urine Ketone - Negative Urine Specific [place] 1.015 Bedside Urine Occult Blood - Negative Bedside Urine pH 6.0 Bedside Urine Protein - Negative Bedside Urine Urobilinogen 0.2 Bedside Urine Nitrite - Negative Bedside Urine Leukocytes - Negative Esterase Point of care testing: Point of Care Testing Test Results Negative Urine Dip Bedside Urine Glucose Negative Bedside Urine Bilirubin - Negative Bedside Urine Ketone - Negative Urine Specific [place] 1.015 Bedside Urine Occult Blood - Negative Bedside Urine pH 6.0 Bedside Urine Protein - Negative Bedside Urine Urobilinogen 0.2 Bedside Urine Nitrite - Negative Bedside Urine Leukocytes - Negative Esterase Imaging Data CT scan - abdomen/pelvis: Radiologist's Impression: [address] [id number] Scan ReportSigned Patient: Nupur Coon [facility]#: [id number]: 1975Acct:[id number]/Sex: 45 / FDate of Service: 11/17/20Loc: EDAccession Number: [id number] Procedure: CT abdomen pelvis w con Ordering Provider: Jeremi Almendarez D.O. PROCEDURE: CT ABDOMEN PELVIS W CON INDICATIONS: Umbilical hernia possibly reduced with discomfort TECHNIQUE: After the administration of intravenous contrast, axial sections acquired from the lung bases to the pubic symphysis. Coronal and sagittal reformats were performed. For radiation dose reduction, the following was used: automated exposure control, adjustment of mA and/or kV according to patient size. COMPARISON: [facility], CT, CT ABDOMEN PELVIS W CON, 10/08/2018, 6:23. [facility], CT, ABDOMEN/PELVIS WITH CONTRAST, 11/23/2007, 10:50. FINDINGS: Image quality: Excellent. Lung bases: Unremarkable. Heart: No significant findings. ABDOMEN: Liver: Unremarkable. Gallbladder: Unremarkable. Biliary ducts: Unremarkable. Pancreas: Unremarkable. Spleen: Unremarkable. Adrenal Glands: Unremarkable. Kidneys and Ureters: Unremarkable. Stomach and Bowel: Stomach, small bowel loops, and colon are unremarkable. Peritoneum: No abnormal intraperitoneal fluid. No free air. Ventral Wall: No incarcerated hernia, and there is a small fat containing periumbilical hernia noted on CT series 2, image 45. . Abdominal Nodes: No retroperitoneal or mesenteric adenopathy by size criteria. Vessels: Aorta and inferior vena cava are normal in size. PELVIS: Pelvic Organs: Unremarkable. Bladder: Unremarkable. Pelvic Nodes: No enlarged lymph nodes. Miscellaneous: No hernias are seen. Bones: Unremarkable. IMPRESSION: Small previously present omental hernia into the periumbilical fatty soft tissues of the anterior abdominal wall at the midline. This was previously present, shows no evidence of incarceration or strangulation, and no additional acute or chronic abnormalities seen to explain current symptomatology otherwise. Dictated by: Marcus Rehman M.D. on 11/17/2020 at 21:45 Approved by: Marcus Rehman M.D. on 11/17/2020 at 21:47 [facility] Narrative Medical decision making narrative: She was given a prescription for refill of her albuterol. Her GC and chlamydia were negative. test is negative. Urinalysis is negative. CT scan the abdomen pelvis is negative. The feel we can hold on further workup for now. Low suspicion for any acute issue given her presentation today. Provided her reassurance on her workup here in the emergency department. I advised her she should contact her primary doctor for follow-up. She expressed understanding and agreement. Discharge Plan Departure Patient Disposition: Home Clinical Impression: Abdominal pain Instructions: DI for Abdominal Pain-Adult Activity Restrictions/Additional Instructions: Recommend that you continue to take all of your medications as directed. Contact your primary doctor for a follow-up. If you do not have a primary doctor you can contact [phone]. This is the health global human resources director here at the hospital. Return to the emergency department for any new or worsening symptoms Prescriptions: New albuterol sulfate 90 mcg/actuation HFA aerosol inhaler 2 puff inhalation Q4-6H PRN (Reason: shortness of breath or wheezing) Qty: 8.5 RF: 0 albuterol sulfate 2.5 mg /3 mL (0.083 %) solution for nebulization 2.5 mg inhalation Q4-6H PRN (Reason: shortness of breath or wheezing) Qty: 75 RF: 0 No Action levothyroxine 75 mcg tablet 75 mcg PO DAILY Qty: 30 RF: 1 norethindrone ac-eth estradiol 1-20 mg-mcg tablet 1 tab PO DAILY Qty: 21 RF: 10 lidocaine HCl [Lidocaine Viscous] 2 % solution 10 ml PO Q3-4H PRN (Reason: ST) Qty: 150 RF: 0 albuterol sulfate aerosol inhalation PRN PRN (Reason: Shortness Of Breath Or Wheezing) RF: 0
[2020-11-17 22:19] LABS: Urine N gonorrhoeae NOT DETECTED
[2020-11-17 22:21] LABS: Urine Chlamydia NOT DETECTED
[2020-11-17 22:48] VITALS: BP 123/71; PULSE 80; RESP 16; O2SAT 100
== END 2020-11-17 22:50 | disposition home or self-care (01) ==
PROVIDERS: Emergency Provider Emergency Medicine
DX: R10.9 Unspecified abdominal pain (principal); N89.8 Other specified noninflammatory disorders of vagina
CPT/HCPCS: 36415; 74177; 80053; 81003; 81025; 83690; 85025; 87491; 87591; 99283; 99284